=== PATIENT | male | born 1975 | race Caucasian/White ===

== ENCOUNTER 2018-08-06 09:19 | Emergency (ER) | payer MEDICAID ==
[~2018-08-06] VITALS: Ht 185.4 cm; Wt 100.3 kg
[2018-08-06 09:34] VITALS: BP 111/71
[2018-08-06] MEDS ORDERED: bacitracin 15gm ointment TP ONE (10:25)
== END 2018-08-06 11:35 | disposition home or self-care (01) ==
LOC: ER 09:20
DX: L72.3 Sebaceous cyst (principal)
CPT/HCPCS: 10060; 99283